=== PATIENT | female | born 1985 | race Caucasian/White ===

== ENCOUNTER → 2016-07-03 | Outpatient (CLI) | payer BC ==
--- NOTE | 2016-07-06 14:46 | US ---
EXAM DATE: 07/03/16 PATIENT'S AGE: 31 Patient: MOIZ GRAY Facility: [place], [place] Site . Site : 1985 Study: US OB Pelvis [id number]/10/2017 12:33:20 PM Ordering Physician: Sherry Bai Final Report: INDICATION: survey. TECHNIQUE: Conventional transabdominal two-dimensional grayscale ultrasound examination. COMPARISON: None. FINDINGS: There is a living fetus with gestational age of 19 weeks 1 day by LMP and 20 weeks by today`s measurements. EDC based on LMP is 11/26/2016. BPD: 4.8 cm, 20 weeks 3 days Head circumference: 17.0 cm, 19 weeks 4 days Abdominal circumference: 15.7 cm, 21 weeks Femur length: 3.0 cm, 19 weeks 2 days The weight is estimated at 331 grams, the 93rd percentile. The heart rate is measured at 148 beats per minute and the rhythm appears regular. The head is grossly intact. The spine is suboptimally visualized due to lie. No gross spinal abnormality is evident No gross facial abnormality is evident. The upper lip is intact. Four cardiac chambers are demonstrated. The heart and stomach appear to be on the same side. The diaphragm is intact. Two kidneys and a bladder are demonstrated. The cord insertion is normal and 3 cord vessels are noted. Four extremities are demonstrated. The amniotic fluid volume is within normal limits with PIERRE of 16 cm. The placenta is anterior with no evidence of previa. IMPRESSION: 1. Living fetus with gestational age of 19 weeks 1 day by LMP and 20 weeks by today`s measurements. EDC based on LMP is 11/26/2016. 2. No anomaly evident. spine less than optimally visualized but grossly intact. Dictated by Piyush Ayala MD @ Jul 06 2016 9:12AM (Electronic Signature) Report Signed by Proxy and Original Signed Document filed in the Medical Record. MTDD
== END ==
LOC: MW.US 10:52
PROVIDERS: ATTEND Obstetrics & Gynecology
DX: Z36 Encounter for antenatal screening of mother (principal); Z3A.19 19 weeks gestation of pregnancy
CPT/HCPCS: 76805; 76805-26

== ENCOUNTER → 2016-07-17 | Outpatient (CLI) | payer BC | LOC: MW.CHOBGYN 10:57 | PROVIDERS: ATTEND Obstetrics & Gynecology | DX: Z34.90 Encounter for supervision of normal pregnancy, unspecified, unspecified trimester (principal) | CPT/HCPCS: 81003 ==

== ENCOUNTER → 2016-08-14 | Outpatient (CLI) | payer BC | LOC: MW.CHOBGYN 10:54 | PROVIDERS: ATTEND Obstetrics & Gynecology | DX: Z34.90 Encounter for supervision of normal pregnancy, unspecified, unspecified trimester (principal) | CPT/HCPCS: 36415; 81003; 82950; 85027 ==

== ENCOUNTER → 2016-08-17 | Outpatient (CLI) | payer BC ==
--- NOTE | 2016-08-19 12:07 | US ---
EXAM DATE: 08/17/16 PATIENT'S AGE: 31 Patient: MOIZ GRAY Facility: [place], [place] Site . Site : 1985 Study: US OB Pelvis [id number]/[id number] 3:49:18 PM Ordering Physician: Sherry Bai Final Report: CLINICAL HISTORY: Third trimester scan, evaluate growth. TECHNIQUE: Real time awad scale imaging of the fetus was performed as well as color Doppler and spectral Doppler analysis of the umbilical artery. FINDINGS: Sonographic imaging demonstrates a single living intrauterine gestation. Fetus demonstrates a regular cardiac rate of 143 beats per minute. Fetus has a breech orientation . The placenta lies anterior without evidence of placenta previa. No hemorrhage is seen. Amniotic fluid volume appears normal and there is a four- quadrant fluid volume index measurement of 10.7. The composite ultrasound gestational age is calculated at 26 weeks 6 days. The estimated weight is 948 grams which lies at the 80th percentile. The biometric indices all lie within normal range. SHIVAM of 11/18/2015 Maternal kidneys that do not demonstrate hydronephrosis. biometry: BPD :6.8 cm/27 weeks 2 days HC :24.5 cm 26 weeks 5 days AC: 21.8 cm 26 weeks 2 day FL 5 cm 26 weeks 6 days IMPRESSION: 1. Single live intrauterine gestational composite gestational age by today`s ultrasound of 26 weeks 6 days with SHIVAM of 11/16/2016. 2. Maternal kidneys appear unremarkable. 3. Placenta appears within normal limits. No findings for hemorrhage. Dictated by Myriam Powell MD @ Aug 19 2016 9:08AM (Electronic Signature) Report Signed by Proxy and Original Signed Document filed in the Medical Record. MTDD
== END ==
LOC: MW.CHOBGYN 15:17
PROVIDERS: ATTEND Obstetrics & Gynecology
DX: O26.892 Other specified pregnancy related conditions, second trimester (principal); Z3A.26 26 weeks gestation of pregnancy
CPT/HCPCS: 76815; 76815-26

== ENCOUNTER → 2016-09-10 | Outpatient (CLI) | payer BC | LOC: MW.CHOBGYN 15:49 | PROVIDERS: ATTEND Advanced Practice Midwife | DX: Z34.90 Encounter for supervision of normal pregnancy, unspecified, unspecified trimester (principal) | CPT/HCPCS: 81003 ==

== ENCOUNTER 2016-11-20 17:25 | Inpatient (IN) | payer BC ==
--- NOTE | 2016-11-20 21:43 | PCM.LDHP ---
L&D History of Present Illness - General Date of Service: 11/20/16 Admit Problem/Dx: Admission Diagnosis/Problem Admission Diagnosis/Problem Source of Information: Patient History Limitations: Reports: No Limitations - History of Present Illness Improves with: Reports: None Worsens with: Reports: None Associated Symptoms: Reports: N - Related Data Allergies/Adverse Reactions: Allergies Allergy/AdvReac Type Severity Reaction Status Date / Time No Known Allergies Allergy Verified 05/04/14 18:40 Home Medications: Home Meds oxyCODONE 5 mg PO Q6H PRN #15 tablet 06/16/14 [Rx] Social & Family History - Tobacco Use Smoking Status *Q: Former Smoker Years of Tobacco use: 2 Used Tobacco, but Quit: Yes Month Tobacco Last Used: September, Second Hand Smoke Exposure: No - Alcohol Use Days Per Week of Alcohol Use: 0 - Recreational Drug Use Recreational Drug Use: No H&P Review of Systems - Review of Systems: Review Of Systems: See Below General: Reports: No Symptoms HEENT: Reports: No Symptoms Pulmonary: Reports: No Symptoms Cardiovascular: Reports: No Symptoms Gastrointestinal: Reports: No Symptoms Genitourinary: Reports: No Symptoms Musculoskeletal: Reports: No Symptoms Skin: Reports: No Symptoms Psychiatric: Reports: No Symptoms Neurological: Reports: No Symptoms Hematologic/Lymphatic: Reports: No Symptoms Immunologic: Reports: No Symptoms L&D Exam - Exam Exam: See Below - Vital Signs Weight: 122.47 kg - Bowens Score Bowens Score Cervix Position: Anterior Bowens Score Effacement: 51-70% Bowens Score Dilation: > 5 cm - Exam General: Alert, Oriented HEENT: PERRLA, Conjunctiva Clear, EACs Clear, EOMI, Hearing Intact, Mucosa Moist & [place], Nares Patent, Normal Nasal Septum, Posterior Pharynx Clear, TMs Clear Neck: Supple, Trachea Midline Lungs: Clear to Auscultation, Normal Respiratory Effort Cardiovascular: Regular Rate, Regular Rhythm GI/Abdominal Exam: Normal Bowel Sounds, Soft, Non-Tender, No Organomegaly, No Distention, No Abnormal Bruit, No Mass, Pelvis Stable Rectal Exam: Normal Exam, Normal Rectal Tone Genitourinary: Normal external exam, Normal bimanual exam, Normal speculum exam Back Exam: Normal Inspection, Full Range of Motion Extremities: Normal Inspection, Normal Range of Motion, Non-Tender, No Pedal Edema, Normal Capillary Refill Skin: Warm, Dry, Intact Neurological: Cranial Nerves Intact, Reflexes Equal Bilateral Psychiatric: Alert, Normal Affect, Normal Mood Problem List Initiated/Reviewed/Updated: Yes Orders Last 24hrs: Term in early active labor. Cx 4-5/80/v/-3. GBS postive. Plan to admit start on antibiotic as per protocol them she may need pitocine argumentation.
[2016-11-20] MEDS ORDERED: Misoprostol 200 MCG Tab PO PRN (22:21)
[2016-11-20] MEDS ORDERED: Lidocaine 1% 50 ML MDV INJECT PRN (22:21)
[2016-11-20] MEDS ORDERED: Water For Irrigation,Sterile 1,000 ML Container IRR PRN (22:21)
[2016-11-20] MEDS ORDERED: Carboprost Tromethamine 250 MCG/1 ML Amp IM PRN (22:21)
[2016-11-20] MEDS ORDERED: Methylergonovine 0.2 MG/1 ML Amp IM PRN (22:21)
[2016-11-20] MEDS ORDERED: Nalbuphine 10 MG/1 ML Vial IVPUSH PRN (22:21)
[2016-11-20] MEDS ORDERED: hydrOXYzine Pamoate 25 MG Cap PO ONE (22:35)
[2016-11-20] MEDS ORDERED: Ampicillin 2 GM in Sodium Chloride 0.9% 100 ML IV ONE (23:00)
[2016-11-20] MEDS: Lactated Ringers 1,000 ML IV SCH (23:30)
[2016-11-21] MEDS: Butorphanol 1 MG/ML SDV IVPUSH PRN ×2 (00:02→08:00)
[2016-11-21] MEDS: Ampicillin 1 GM in Sodium Chloride 0.9% 50 ML IV SCH ×5 (02:18→21:25)
[2016-11-21] MEDS ORDERED: Terbutaline 1 MG/ML SDV SUBCUT PRN (07:19)
[2016-11-21] MEDS ORDERED: Oxytocin/Lactated Ringers 30 UNIT/500 ML BAG IV SCH ×2 (07:30→08:00)
--- NOTE | 2016-11-21 08:12 | PCM.PREANE ---
[id number] Reaction - Review of Systems General: No Symptoms Pulmonary: No Symptoms Cardiovascular: No Symptoms Gastrointestinal: No Symptoms Neurological: No Symptoms Other: Reports: None - Physical Assessment Height: 5 ft 6 in Weight: 122.47 kg ASA Class: 2 Mental Status: Alert & Oriented x3 Airway Class: Mallampati = 2 Dentition: Reports: Normal Dentition Thyro-Mental Finger Breadths: 3 Mouth Opening Finger Breadths: 3 ROM/Head Extension: Full Lungs: Clear to Auscultation, Normal Respiratory Effort Cardiovascular: Regular Rate, Regular Rhythm - Lab Values: Laboratory Last Values WBC 12.25 K/uL (4.0-11.0) H 11/20/16 23:20 RBC 3.35 M/uL (4.30-5.90) L 11/20/16 23:20 Hgb 11.0 g/dL (12.0-16.0) L 11/20/16 23:20 Hct 32.7 % (36.0-46.0) L 11/20/16 23:20 MCV 97.6 fL (80.0-98.0) 11/20/16 23:20 MCH 32.8 pg (27.0-32.0) H 11/20/16 23:20 MCHC 33.6 g/dL (31.0-37.0) 11/20/16 23:20 RDW Std Deviation 49.8 fl (28.0-62.0) 11/20/16 23:20 RDW Coeff of Nasima 14 % (11.0-15.0) 11/20/16 23:20 Plt Count 192 K/uL (150-400) 11/20/16 23:20 MPV 12.60 fL (7.40-12.00) H 11/20/16 23:20 Nucleated RBC % 0.0 /100WBC 11/20/16 23:20 Nucleated RBCs # 0 K/uL 11/20/16 23:20 Blood Type A POSITIVE 11/20/16 23:20 Antibody Screen NEGATIVE 11/20/16 23:20 - Allergies Allergies/Adverse Reactions: Allergies Allergy/AdvReac Type Severity Reaction Status Date / Time No Known Allergies Allergy Verified 05/04/14 18:40 - Acknowledgements Anesthesia Type Planned: Epidural Pt an Appropriate Candidate for the Planned Anesthesia: Yes Alternatives and Risks of Anesthesia Discussed w Pt/Guardian: Yes Pt/Guardian Understands and Agrees with Anesthesia Plan: Yes PreAnesthesia Questionnaire HEENT History: Reports: None Cardiovascular History: Reports: None Respiratory History: Reports: None Gastrointestinal History: Reports: GERD, Other (See Below) (Hital Hernia) Genitourinary History: Reports: None CERTIFIED MEDICAL DOSIMETRIST History: Reports: : 4 Para: 2 LMP (Approximate): Musculoskeletal History: Reports: None Neurological History: Reports: None Psychiatric History: Reports: None Endocrine/Metabolic History: Reports: Obesity/BMI 30+ Hematologic History: Reports: None Immunologic History: Reports: None Oncologic (Cancer) History: Reports: None Dermatologic History: Reports: None - Infectious Disease History Infectious Disease History: Reports: None - SUBSTANCE USE Smoking Status *Q: Former Smoker Second Hand Smoke Exposure: No Days Per Week of Alcohol Use: 0 Recreational Drug Use History: No - HOME MEDS Home Medications: Home Meds oxyCODONE 5 mg PO Q6H PRN #15 tablet 06/16/14 [Rx] - CURRENT (IN HOUSE) MEDS Current Meds: Current Medications Butorphanol Tartrate (Stadol) 1 mg IVPUSH Q1H PRN PRN Reason: Pain Last Admin: 11/21/16 08:00 Dose: 1 mg Carboprost Tromethamine (Hemabate Ds) 250 mcg IM ASDIRECTED PRN PRN Reason: Post Hemorrhage Ampicillin Sodium 1 gm/ Sodium (Chloride) 50 mls @ 100 mls/hr IV Q4H TAYLOR Last Admin: 11/21/16 06:39 Dose: 100 mls/hr Lactated Ringer's (Ringers, Lactated) 1,000 mls @ 150 mls/hr IV ASDIRECTED TAYLOR Last Admin: 11/20/16 23:30 Dose: 150 mls/hr Oxytocin/Lactated Ringer's (Pitocin In Lr 30 Units/500 Ml) 30 unit in 500 mls @ 500 mls/hr IV TITRATE TAYLOR PRN Reason: 500 MUNITS/MIN Stop: 11/21/16 08:59 Oxytocin/Lactated Ringer's (Pitocin In Lr 30 Units/500 Ml) 30 unit in 500 mls @ 2 mls/hr IV TITRATE TAYLOR; 2 MUNITS/MIN PRN Reason: Protocol Lidocaine HCl (Xylocaine 1%) 50 ml INJECT .ONCE PRN PRN Reason: Laceration repair Methylergonovine Maleate (Methergine) 0.2 mg IM ASDIRECTED PRN PRN Reason: Post Hemorrhage Misoprostol (Cytotec) 200 mcg PO .ONCE PRN PRN Reason: Post Hemorrhage Sterile Water (Sterile Water For Irrigation) 1,000 ml IRR ASDIRECTED PRN PRN Reason: delivery Terbutaline Sulfate (Brethine) 0.25 mg SUBCUT ASDIRECTED PRN PRN Reason: Tacysystole Discontinued Medications Hydroxyzine Pamoate (Vistaril) 50 mg PO ONETIME ONE Stop: 11/20/16 22:36 Last Admin: 11/20/16 23:13 Dose: 50 mg Ampicillin Sodium 2 gm/ Sodium (Chloride) 100 mls @ 200 mls/hr IV ONETIME ONE Stop: 11/20/16 23:29 Last Admin: 11/20/16 23:35 Dose: 200 mls/hr Nalbuphine HCl (Nubain) 10 mg IVPUSH Q1H PRN PRN Reason: Pain (severe 7-10) Stop: 11/21/16 00:22
[2016-11-21] MEDS ORDERED: Ropivacaine HCl/PF 100 ML ONE (08:43)
[2016-11-21] MEDS ORDERED: fentaNYL 100 MCG/2 ML SDV ONE (08:43)
[2016-11-21] MEDS: Lactated Ringers 1,000 ML IV SCH (09:00)
[2016-11-21] MEDS ORDERED: Docusate Sodium 100 MG Cap PO PRN (11:49)
[2016-11-21] MEDS ORDERED: Benzocaine/Menthol 20%-0.5% Spray 78 GM Cannister TOP PRN (11:49)
[2016-11-21] MEDS ORDERED: Ibuprofen 400 MG Tab PO PRN (11:49)
[2016-11-21] MEDS ORDERED: Witch Hazel Medicated Pads 40/Jar TOP PRN (11:49)
[2016-11-21] MEDS ORDERED: Lanolin 100% Cream 7 GM Tube TOP PRN (11:49)
[2016-11-21] MEDS ORDERED: Bisacodyl 10 MG Supp RECTAL PRN (11:49)
[2016-11-21] MEDS ORDERED: Acetaminophen 500 MG Tab PO PRN (11:49)
[2016-11-21] MEDS: Ibuprofen 800 MG Tab PO PRN ×2 (14:59→20:30)
[2016-11-21] MEDS: Acetaminophen 500 MG Tab PO PRN (19:32)
[2016-11-21] MEDS: oxyCODONE 5 MG Tab PO PRN ×2 (21:25→23:57)
[2016-11-22] MEDS: Ibuprofen 800 MG Tab PO PRN (03:20)
[2016-11-22] MEDS: oxyCODONE 5 MG Tab PO PRN ×2 (04:30→08:42)
--- NOTE | 2016-11-22 07:27 | PCM48HPAN ---
Post Anesthesia Note - EVALUATION WITHIN 48HRS OF ANESTHETIC Vital Signs in Normal Range: Yes Patient Participated in Evaluation: Yes Respiratory Function Stable: Yes Airway Patent: Yes Cardiovascular Function Stable: Yes Hydration Status Stable: Yes Pain Control Satisfactory: Yes Nausea and Vomiting Control Satisfactory: Yes Mental Status Recovered: Yes
--- NOTE | 2016-11-22 09:38 | PCM.PNPP ---
- General Info Date of Service: 11/22/16 Functional Status: Reports: Pain Controlled - Review of Systems General: Reports: No Symptoms HEENT: Reports: No Symptoms Pulmonary: Reports: No Symptoms Cardiovascular: Reports: No Symptoms Gastrointestinal: Reports: No Symptoms Genitourinary: Reports: No Symptoms Musculoskeletal: Reports: No Symptoms Skin: Reports: No Symptoms Neurological: Reports: No Symptoms Psychiatric: Reports: No Symptoms - General Info Date of Service: 11/22/16 - Patient Data Vital Signs - Most Recent: Last Vital Signs Temp 36.3 C 11/22/16 07:39 Pulse 62 11/22/16 07:39 Resp 14 11/22/16 07:39 BP 122/78 11/22/16 07:39 Pulse Ox 98 11/22/16 07:39 Weight - Most Recent: 122.47 kg Lab Results - Last 24 Hours: Laboratory Results - last 24 hr 11/22/16 Range/Units 04:44 Hgb 9.9 L (12.0-16.0) g/dL Hct 30.4 L (36.0-46.0) % Med Orders - Current: Current Medications Acetaminophen (Tylenol Extra Strength) 500 mg PO Q4H PRN PRN Reason: Pain Acetaminophen (Tylenol Extra Strength) 1,000 mg PO Q4H PRN PRN Reason: Pain Last Admin: 11/21/16 19:32 Dose: 1,000 mg Benzocaine/Menthol (Dermoplast Pain Relief 20%-0.5% [place]) 78 gm TOP ASDIRECTED PRN PRN Reason: Perineal Comfort Measure Last Admin: 11/21/16 19:36 Dose: 1 canister Bisacodyl (Dulcolax) 10 mg RECTAL .ONCE PRN PRN Reason: Constipation Butorphanol Tartrate (Stadol) 1 mg IVPUSH Q1H PRN PRN Reason: Pain Last Admin: 11/21/16 08:00 Dose: 1 mg Carboprost Tromethamine (Hemabate Ds) 250 mcg IM ASDIRECTED PRN PRN Reason: Post Hemorrhage Docusate Sodium (Colace) 100 mg PO BID PRN PRN Reason: Constipation Emollient Ointment (Lansinoh Hpa) 0 gm TOP ASDIRECTED PRN PRN Reason: Sore Nipples Last Admin: 11/21/16 15:00 Dose: 2 tube Lactated Ringer's (Ringers, Lactated) 1,000 mls @ 150 mls/hr IV ASDIRECTED TAYLOR Last Admin: 11/21/16 09:00 Dose: 150 mls/hr Oxytocin/Lactated Ringer's (Pitocin In Lr 30 Units/500 Ml) 30 unit in 500 mls @ 2 mls/hr IV TITRATE TAYLOR; 2 MUNITS/MIN PRN Reason: Protocol Last Titration: 11/21/16 11:43 Dose: 999 munits/min, 999 mls/hr Ibuprofen (Motrin) 400 mg PO Q4H PRN PRN Reason: Pain Ibuprofen (Motrin) 800 mg PO Q6H PRN PRN Reason: Pain Last Admin: 11/22/16 03:20 Dose: 800 mg Lidocaine HCl (Xylocaine 1%) 50 ml INJECT .ONCE PRN PRN Reason: Laceration repair Methylergonovine Maleate (Methergine) 0.2 mg IM ASDIRECTED PRN PRN Reason: Post Hemorrhage Misoprostol (Cytotec) 200 mcg PO .ONCE PRN PRN Reason: Post Hemorrhage Oxycodone HCl (Oxycodone) 5 mg PO Q2H PRN PRN Reason: Pain Last Admin: 11/22/16 08:42 Dose: 5 mg Sterile Water (Sterile Water For Irrigation) 1,000 ml IRR ASDIRECTED PRN PRN Reason: delivery Terbutaline Sulfate (Brethine) 0.25 mg SUBCUT ASDIRECTED PRN PRN Reason: Tacysystole Witch Jasmin (Tucks) 1 pad TOP ASDIRECTED PRN PRN Reason: comfort care Discontinued Medications Fentanyl (Sublimaze) Confirm Administered Dose 100 mcg .ROUTE .STK-MED ONE Stop: 11/21/16 08:44 Last Admin: 11/21/16 21:24 Dose: Not Given Hydroxyzine Pamoate (Vistaril) 50 mg PO ONETIME ONE Stop: 11/20/16 22:36 Last Admin: 11/20/16 23:13 Dose: 50 mg Ampicillin Sodium 2 gm/ Sodium (Chloride) 100 mls @ 200 mls/hr IV ONETIME ONE Stop: 11/20/16 23:29 Last Admin: 11/20/16 23:35 Dose: 200 mls/hr Ampicillin Sodium 1 gm/ Sodium (Chloride) 50 mls @ 100 mls/hr IV Q4H TAYLOR Last Admin: 11/21/16 21:25 Dose: Not Given Oxytocin/Lactated Ringer's (Pitocin In Lr 30 Units/500 Ml) 30 unit in 500 mls @ 500 mls/hr IV TITRATE TAYLOR PRN Reason: 500 MUNITS/MIN Stop: 11/21/16 08:59 Last Admin: 11/21/16 21:24 Dose: Not Given Ropivacaine (Naropin 0.2%) Confirm Administered Dose 100 mls @ as directed .ROUTE .STK-MED ONE Stop: 11/21/16 08:44 Last Admin: 11/21/16 21:24 Dose: Not Given Nalbuphine HCl (Nubain) 10 mg IVPUSH Q1H PRN PRN Reason: Pain (severe 7-10) Stop: 11/21/16 00:22 - Interaction Support Person: - Recovery Exam Fundal Tone: Firm Fundal Level: 2 Fingerbreadths Below Umbilicus Fundal Placement: Midline Lochia Amount: Scant Lochia Color: Rubra/Red Perineum Description: Intact, Minimal Bruising/Swelling Bladder Status: Voiding Urinary Elimination: Voided - Exam General: Alert, Oriented HEENT: Pupils Equal Neck: Supple Lungs: Clear to Auscultation, Normal Respiratory Effort Cardiovascular: Regular Rate, Regular Rhythm GI/Abdominal Exam: Normal Bowel Sounds, Soft, Non-Tender, No Organomegaly, No Distention, No Abnormal Bruit, No Mass, Pelvis Stable Extremities: Normal Inspection, Normal Range of Motion, Non-Tender, No Pedal Edema, Normal Capillary Refill Skin: Warm, Dry, Intact Wound/Incisions: Healing Well Neurological: No New Focal Deficit Psy/Mental Status: Alert, Normal Affect, Normal Mood - Problem List Review Problem List Initiated/Reviewed/Updated: Yes - My Orders Last 24 Hours: My Active Orders 11/21/16 11:49 Patient Status [ADT] Routine May Shower [RC] ASDIRECTED Up ad May [RC] ASDIRECTED Acetaminophen [Tylenol Extra Strength] 1,000 mg PO Q4H PRN Acetaminophen [Tylenol Extra Strength] 500 mg PO Q4H PRN Benzocaine/Menthol [Dermoplast Pain Relief 20%-0.5% [place]] 78 gm TOP ASDIRECTED PRN Bisacodyl [Dulcolax] 10 mg RECTAL .ONCE PRN Docusate Sodium [Colace] 100 mg PO BID PRN Ibuprofen [Motrin] 400 mg PO Q4H PRN Ibuprofen [Motrin] 800 mg PO Q6H PRN Lanolin [Lansinoh HPA] See Dose Instructions TOP ASDIRECTED PRN Witch Jasmin [Tucks] 1 pad TOP ASDIRECTED PRN oxyCODONE 5 mg PO Q2H PRN Assess Lochia [WOMSER] Per Unit Routine Assess Uterine Involution [WOMSER] Per Unit Routine Peripheral IV Discontinue [OM.PC] Routine 11/21/16 Dinner Regular Diet [DIET] - Assessment Assessment:: doing well - Plan Plan:: Send home today.
[2016-11-22] MEDS: Acetaminophen 500 MG Tab PO PRN (12:07)
[2016-11-22 12:41] VITALS: BP 127/72
--- NOTE | 2016-11-23 06:17 | OR ---
SURGEON: Richardson Powell MD DATE OF PROCEDURE: 11/21/16 DELIVERY NOTE: Ms. Matos is 31 years old patient. She is para 1-0-0-1. She is followed in our clinic without problem or complication. Her diabetes screen was negative. Her GBS status was positive. The patient was admitted to Labor and Delivery in early active labor. She was 4 to 5 cm with bulging bag of water and a [id number] contraction. The patient was started on antibiotic as per protocol for her GBS status, and then after two doses, she had an artificial rupture of the membrane with clear fluid. She required low dose Pitocin augmentation, she proceeded to be complete, and after that, she was able to accomplish normal spontaneous vaginal delivery of a male fetus. score reported to be 8 and 9 and the weight is 813. The placenta delivered spontaneous, complete, and intact without any problem. There was no need of episiotomy and there was no laceration. heart rate was category 1 through the entire process of labor. Estimated blood loss was 250 mL in this delivery. There were no complications. . CASSIDY / ALBINA /[id number]
== END 2016-11-22 14:45 | disposition home or self-care (01) | DRG 560 ==
LOC: MW.OBCHECK 17:25 → MW.OB 17:56 → MW.OBCHECK 22:22 → OBSVTOIN 11-21 11:43 → MW.OB 11-21 22:01
PROVIDERS: ADMIT Obstetrics & Gynecology; ATTEND Obstetrics & Gynecology
PROC: 10E0XZZ Delivery of Products of Conception, External Approach (ICD-10-PCS; principal; 2016-11-21)
PROC: 10907ZC Drainage of Amniotic Fluid, Therapeutic from Products of Conception, Via Natural or Artificial Opening (ICD-10-PCS; 2016-11-21)
DX: O99.824 Streptococcus B carrier state complicating childbirth (principal); Z3A.40 40 weeks gestation of pregnancy; Z37.0 Single live birth
CPT/HCPCS: 01967; 36415; 59025; 85014; 85018; 85027; 86850; 86900; 86901; A9270-GY; J0290; J0595; J2795; J3010; J7030; J7050; J7120

== ENCOUNTER 2019-01-27 11:32 | Inpatient (IN) | payer OTHER ==
[2019-01-27] MEDS ORDERED: Butorphanol 1 MG/ML SDV IVPUSH PRN (12:05)
[2019-01-27] MEDS ORDERED: Sodium Chloride 0.9% 10 ML SDV IV PRN (12:05)
[2019-01-27] MEDS ORDERED: Nalbuphine 10 MG/1 ML Vial IVPUSH PRN (12:05)
[2019-01-27] MEDS ORDERED: Methylergonovine 0.2 MG/1 ML Amp IM PRN (12:05)
[2019-01-27] MEDS ORDERED: Sodium Chloride 0.9% 2.5 ML Syringe FLUSH PRN (12:05)
[2019-01-27] MEDS ORDERED: Misoprostol 200 MCG Tab PO PRN (12:05)
[2019-01-27] MEDS ORDERED: Lidocaine 1% 50 ML MDV INJECT PRN (12:05)
[2019-01-27] MEDS ORDERED: Sodium Chloride 0.9% 10 ML Syringe FLUSH PRN (12:05)
[2019-01-27] MEDS ORDERED: Carboprost Tromethamine 250 MCG/1 ML Amp IM PRN (12:05)
[2019-01-27] MEDS ORDERED: Water For Irrigation,Sterile 1,000 ML Container IRR PRN (12:05)
[2019-01-27] MEDS ORDERED: Ondansetron 4 MG/2 ML SDV IVPUSH PRN (12:05)
[2019-01-27] MEDS ORDERED: Tranexamic Acid 1,000 MG in Sodium Chloride 0.9% 100 ML IV PRN (12:05)
[2019-01-27] MEDS ORDERED: Terbutaline 1 MG/ML SDV SUBCUT PRN (12:12)
[2019-01-27] MEDS ORDERED: Misoprostol 25 MCG (1/4 of 100 MCG) Tab VAG PRN ×2 (12:12)
[2019-01-27] MEDS ORDERED: Magnesium Sulfate/Water 4 GM in Premix Bag 1 BAG IV ONE (12:15)
[2019-01-27] MEDS ORDERED: Calcium Gluconate 10% 1 GM/10 ML SDV IV PRN (12:15)
[2019-01-27] MEDS ORDERED: Magnesium Sulfate/Water 20 GM/500 ML BAG IV SCH (12:15)
[2019-01-27] MEDS ORDERED: Oxytocin/0.9 % Sodium Chloride 30 UNIT/500 ML BAG IV SCH (12:15)
[2019-01-27] MEDS ORDERED: Sodium Chloride 0.9% 1,000 ML IV SCH (12:45)
[2019-01-27 13:25] LABS: BLOOD UREA NITROGEN,BUN 7 mg/dL (7.0-18.0); CARBON DIOXIDE,CO2 19.6 mmol/L (21.0-32.0); CHLORIDE,CL 106 mmol/L (98-107); GLUCOSE RANDOM 75 mg/dL (74-106); POTASSIUM,K 3.9 mmol/L (3.5-5.1); SODIUM,NA 138 mmol/L (136-145)
[2019-01-27] MEDS ORDERED: Oxytocin/0.9 % Sodium Chloride 30 UNIT/500 ML BAG ONE (14:48)
[2019-01-27] MEDS: Oxytocin/0.9 % Sodium Chloride 30 UNIT/500 ML BAG IV SCH (15:03)
[2019-01-27] MEDS: Lactated Ringers 1,000 ML IV SCH ×3 (15:03→22:10)
[2019-01-27] MEDS: Acetaminophen 500 MG Tab PO PRN (19:59)
--- NOTE | 2019-01-27 21:24 | PCM.PREANE ---
Preanesthetic Assessment - Anesthesia/Transfusion/Family Hx Anesthesia History: Prior Anesthesia Without Reaction Family History of Anesthesia Reaction: No Transfusion History: No Prior Transfusion(s) - Review of Systems General: No Symptoms Pulmonary: No Symptoms Cardiovascular: No Symptoms Gastrointestinal: No Symptoms Neurological: No Symptoms Other: Reports: None - Physical Assessment Height: 5 ft 6 in Weight: 119.295 kg ASA Class: 2 Mental Status: Alert & Oriented x3 Airway Class: Mallampati = 2 Dentition: Reports: Normal Dentition Thyro-Mental Finger Breadths: 3 Mouth Opening Finger Breadths: 3 ROM/Head Extension: Full Lungs: Clear to Auscultation, Normal Respiratory Effort Cardiovascular: Regular Rate, Regular Rhythm - Lab Values: Laboratory Last Values WBC 8.71 K/uL (4.0-11.0) 01/27/19 12:41 RBC 3.41 M/uL (4.30-5.90) L 01/27/19 12:41 Hgb 10.8 g/dL (12.0-16.0) L 01/27/19 12:41 Hct 33.1 % (36.0-46.0) L 01/27/19 12:41 MCV 97.1 fL (80.0-98.0) 01/27/19 12:41 MCH 31.7 pg (27.0-32.0) 01/27/19 12:41 MCHC 32.6 g/dL (31.0-37.0) 01/27/19 12:41 RDW Std Deviation 47.5 fl (28.0-62.0) 01/27/19 12:41 RDW Coeff of Nasima 14 % (11.0-15.0) 01/27/19 12:41 Plt Count 200 K/uL (150-400) 01/27/19 12:41 MPV 12.40 fL (7.40-12.00) H 01/27/19 12:41 Nucleated RBC % 0.0 /100WBC 01/27/19 12:41 Nucleated RBCs # 0 K/uL 01/27/19 12:41 Sodium 138 mmol/L (136-145) 01/27/19 12:41 Potassium 3.9 mmol/L (3.5-5.1) 01/27/19 12:41 Chloride 106 mmol/L (98-107) 01/27/19 12:41 Carbon Dioxide 19.6 mmol/L (21.0-32.0) L 01/27/19 12:41 BUN 7 mg/dL (7.0-18.0) 01/27/19 12:41 Creatinine 0.6 mg/dL (0.6-1.0) 01/27/19 12:41 Est Cr Clr Drug Dosing 127.18 mL/min 01/27/19 12:41 Estimated GFR (MDRD) > 60.0 ml/min 01/27/19 12:41 Glucose 75 mg/dL (74-106) 01/27/19 12:41 Uric Acid 4.2 mg/dL (2.6-7.2) 01/27/19 12:41 Calcium 8.5 mg/dL (8.5-10.1) 01/27/19 12:41 Magnesium 4.7 mg/dL (1.8-2.4) H 01/27/19 17:27 Total Bilirubin 0.3 mg/dL (0.2-1.0) 01/27/19 12:41 AST 24 IU/L (15-37) 01/27/19 12:41 ALT 41 IU/L (14-63) 01/27/19 12:41 Alkaline Phosphatase 135 U/L (46-116) H 01/27/19 12:41 Lactate Dehydrogenase 146 U/L (81-234) 01/27/19 12:41 Total Protein 6.3 g/dL (6.4-8.2) L 01/27/19 12:41 Albumin 1.9 g/dL (3.4-5.0) L 01/27/19 12:41 Globulin 4.4 g/dL (2.6-4.0) H 01/27/19 12:41 Albumin/Globulin Ratio 0.4 (0.9-1.6) L 01/27/19 12:41 Ur Random Creatinine 100.1 mg/dL 01/27/19 13:40 U Random Total Protein 28.6 mg/dL (<11.9) H 01/27/19 13:40 Protein/Creatinin Ratio 0.3 01/27/19 13:40 Blood Type A POSITIVE 01/27/19 12:41 Antibody Screen NEGATIVE 01/27/19 12:41 - Allergies Allergies/Adverse Reactions: Allergies Allergy/AdvReac Type Severity Reaction Status Date / Time No Known Allergies Allergy Verified 01/27/19 12:01 - Anesthesia Plan Free Text/Narrative:: Plan Continuous Labor Epidural - Acknowledgements Anesthesia Type Planned: Epidural Pt an Appropriate Candidate for the Planned Anesthesia: Yes Alternatives and Risks of Anesthesia Discussed w Pt/Guardian: Yes Pt/Guardian Understands and Agrees with Anesthesia Plan: Yes PreAnesthesia Questionnaire HEENT History: Reports: None Cardiovascular History: Reports: Hypertension Other Cardiovascular History: Hypertension with -preeclampsia Respiratory History: Reports: None Gastrointestinal History: Reports: GERD, Hiatal Hernia, Other (See Below) Genitourinary History: Reports: None TRUMPET PLAYER History: Reports: , Other (See Below) (Preeclampsia) : 4 Para: 2 LMP (Approximate): Musculoskeletal History: Reports: None Neurological History: Reports: Other (See Below) (Headaches) Psychiatric History: Reports: None Endocrine/Metabolic History: Reports: Obesity/BMI 30+ Hematologic History: Reports: None Immunologic History: Reports: None Oncologic (Cancer) History: Reports: None Dermatologic History: Reports: None - Infectious Disease History Infectious Disease History: Reports: None - Past Surgical History HEENT Surgical History: Reports: Adenoidectomy, Naso-Sinus Surgery, Tonsillectomy Musculoskeletal Surgical History: Reports: Shoulder Surgery (Right Shoulder) - SUBSTANCE USE Smoking Status *Q: Never Smoker Recreational Drug Use History: No - HOME MEDS Home Medications: Home Meds Acetaminophen [Tylenol Extra Strength] 1,000 mg PO DAILY PRN 12/08/18 [History] [id number]/FA/Omega3/Dha/Fish Oil [ Gummies] 1 tab PO DAILY 12/08/18 [ History] Acetaminophen/Butalbital/Caff [Fioricet 325-50-40 MG] 1 each PO 01/27/19 [ History] Sertraline [Zoloft] 50 mg PO DAILY 01/27/19 [History] - CURRENT (IN HOUSE) MEDS Current Meds: Current Medications Acetaminophen (Tylenol Extra Strength) 1,000 mg PO Q6H PRN PRN Reason: Headache Last Admin: 01/27/19 19:59 Dose: 1,000 mg Butorphanol Tartrate (Stadol) 1 mg IVPUSH Q1H PRN PRN Reason: Pain Calcium Gluconate (Calcium Gluconate) 1 gm IV ASDIRECTED PRN PRN Reason: respiratory distress Carboprost Tromethamine (Hemabate Ds) 250 mcg IM ASDIRECTED PRN PRN Reason: Post Hemorrhage Lactated Ringer's (Ringers, Lactated) 1,000 mls @ 150 mls/hr IV ASDIRECTED [facility] Last Admin: 01/27/19 15:03 Dose: 10 mls/hr Oxytocin/Sodium Chloride (Oxytocin 30 Unit/500 Ml-Ns) 30 unit in 500 mls @ 500 mls/hr IV TITRATE [facility] Tranexamic Acid 1,000 mg/ (Sodium Chloride) 110 mls @ 660 mls/hr IV ONETIME PRN PRN Reason: Bleeding Oxytocin/Sodium Chloride (Oxytocin 30 Unit/500 Ml-Ns) 30 unit in 500 mls @ 2 mls/hr IV TITRATE [facility]; Protocol Last Titration: 01/27/19 19:19 Dose: 12 munits/min, 12 mls/hr Magnesium Sulfate (Magnesium Sulfate In Water Premix) 20 gm in 500 mls @ 50 mls /hr IV ASDIRECTED [facility] Last Admin: 01/27/19 13:17 Dose: 2 gm/hr, 50 mls/hr Sodium Chloride (Normal Saline) 1,000 mls @ 60 mls/hr IV ASDIRECTED [facility] Last Infusion: 01/27/19 13:15 Dose: 10 mls/hr Lidocaine HCl (Xylocaine 1%) 50 ml INJECT ONETIME PRN PRN Reason: Laceration repair Methylergonovine Maleate (Methergine) 0.2 mg IM ASDIRECTED PRN PRN Reason: Post Hemorrhage Misoprostol (Cytotec) 200 mcg PO ONETIME PRN PRN Reason: Post Hemorrhage Misoprostol (Cytotec) 25 mcg VAG ONETIME PRN PRN Reason: Cervical Ripening Misoprostol (Cytotec) 25 mcg VAG Q4H PRN PRN Reason: Cervical Ripening Nalbuphine HCl (Nubain) 10 mg IVPUSH Q1H PRN PRN Reason: Pain (severe 7-10) Ondansetron HCl (Zofran) 4 mg IVPUSH Q6H PRN PRN Reason: Nausea/Vomiting Sodium Chloride (Saline Flush) 10 ml FLUSH ASDIRECTED PRN PRN Reason: Keep Vein Open Sodium Chloride (Saline Flush) 2.5 ml FLUSH ASDIRECTED PRN PRN Reason: Keep Vein Open Sodium Chloride (Normal Saline) 10 ml IV ASDIRECTED PRN PRN Reason: IV Use Sterile Water (Sterile Water For Irrigation) 1,000 ml IRR ASDIRECTED PRN PRN Reason: delivery Terbutaline Sulfate (Brethine) 0.25 mg SUBCUT ASDIRECTED PRN PRN Reason: Tacysystole Discontinued Medications Magnesium Sulfate 4 gm/ Premix 100 mls @ 300 mls/hr IV BOLUS ONE Stop: 01/27/19 12:34 Last Admin: 01/27/19 12:58 Dose: 300 mls/hr Oxytocin/Sodium Chloride (Oxytocin 30 Unit/500 Ml-Ns) Confirm Administered Dose 30 unit in 500 mls @ as directed .ROUTE .STK-MED ONE Stop: 01/27/19 14:49 Fentanyl/Bupivacaine HCl (Xrrhdnku-Gfgup-Ah 2 Mcg/Ml-0.125%) Confirm Administered Dose 100 mls @ as directed .ROUTE .STK-MED ONE Stop: 01/27/19 20:36
[2019-01-27] MEDS ORDERED: ePHEDrine 50 MG/ML SDV ONE (21:32)
[2019-01-27] MEDS: ePHEDrine 50 MG/ML SDV IVPUSH PRN ×4 (21:36→22:51)
[2019-01-27] MEDS ORDERED: Phenylephrine 1% 10 MG/ML SDV ONE (22:28)
[2019-01-28] MEDS: Lactated Ringers 1,000 ML IV SCH (02:10)
[2019-01-28] MEDS: Acetaminophen 500 MG Tab PO PRN (02:28)
--- NOTE | 2019-01-28 02:29 | PCM.SN ---
- Free Text/Narrative Note: Patient has a history of preeclampsia and arrived for induction 01/27/19. Epidural was requested at approximately 2009 on 01/27/19. Vital signs were stable at the time with patient on pitocin and magnesium infusions. Epidural placed after two attempts. During the latter part of the epidural placement, patient became nauseated and BP dropped in the 90's/60's. Upon completion of epidural placement, test dose was given when BP returned to 110's systolically without any changes in vital signs. Patient was positioned semi-fowlers and bolus dose of 8 ml was initiated via epidural pump. Monitored patient closely for the next several hours some as patient started to have more complaints of feeling tinglingly all over and nausea continued. RN had contacted MD and magnesium infusion was stopped. Assisted RN with treatment of BP using ephedrine and phenylephrine, as well as turned the epidural infusion essentially off at 1 ml/hr. During the entire time, heart tones remained stable and without concerns. See anesthesia records and PIP for further details on medications and further interventions by the nurse & [employer]. At approximately 0200 on 01/28/19, nurse requests to have epidural epidural infusion turned back up to 8 ml/hr when vital signs remained stable and patient was starting to become more uncomfortable during contractions.
--- NOTE | 2019-01-28 04:50 | PCM.DEL ---
L & D Note - General Info Date of Service: 01/28/19 Mother's Due Date: 02/19/19 - Delivery Note Labor: Augmented by ARM, Induced by Oxytocin Delivery Outcome: Livebirth Delivery Method: Spontaneous Vaginal Delivery-Single Presentation: precipitous (5 cm at 4:12, delivered at 4:20) Nuchal Cord: Reduced Prep: Other Anesthesia Type: Epidural Amniotic Fluid Description: Clear Episiotomy Type: None Laceration: None Placenta: Intact, Spontaneous Cord: 3 Vessels Resuscitation Needed: No [facility]: Suctioned Score 1 min: 5 Score 5 min: 8 - General Info Date of Service: 01/28/19 - Patient Data Weight - Most Recent: 119.295 kg Lab Results Last 24 Hours: Laboratory Results - last 24 hr 01/27/19 01/27/19 01/27/19 Range/Units 12:41 12:41 12:41 WBC 8.71 (4.0-11.0) K/uL RBC 3.41 L (4.30-5.90) M/uL Hgb 10.8 L (12.0-16.0) g/dL Hct 33.1 L (36.0-46.0) % MCV 97.1 (80.0-98.0) fL MCH 31.7 (27.0-32.0) pg MCHC 32.6 (31.0-37.0) g/dL RDW Std Deviation 47.5 (28.0-62.0) fl RDW Coeff of Nasima 14 (11.0-15.0) % Plt Count 200 (150-400) K/uL MPV 12.40 H (7.40-12.00) fL Nucleated RBC % 0.0 /100WBC Nucleated RBCs # 0 K/uL Sodium 138 (136-145) mmol/L Potassium 3.9 (3.5-5.1) mmol/L Chloride 106 (98-107) mmol/L Carbon Dioxide 19.6 L (21.0-32.0) mmol/L BUN 7 (7.0-18.0) mg/dL Creatinine 0.6 (0.6-1.0) mg/dL Est Cr Clr Drug Dosing 127.18 mL/min Estimated GFR (MDRD) > 60.0 ml/min Glucose 75 (74-106) mg/dL Uric Acid 4.2 (2.6-7.2) mg/dL Calcium 8.5 (8.5-10.1) mg/dL Magnesium (1.8-2.4) mg/dL Total Bilirubin 0.3 (0.2-1.0) mg/dL AST 24 (15-37) IU/L ALT 41 (14-63) IU/L Alkaline Phosphatase 135 H (46-116) U/L Lactate Dehydrogenase 146 (81-234) U/L Total Protein 6.3 L (6.4-8.2) g/dL Albumin 1.9 L (3.4-5.0) g/dL Globulin 4.4 H (2.6-4.0) g/dL Albumin/Globulin Ratio 0.4 L (0.9-1.6) Ur Random Creatinine mg/dL U Random Total Protein (<11.9) mg/dL Protein/Creatinin Ratio Blood Type A POSITIVE Antibody Screen NEGATIVE 01/27/19 01/27/19 01/27/19 Range/Units 13:40 17:27 23:28 WBC (4.0-11.0) K/uL RBC (4.30-5.90) M/uL Hgb (12.0-16.0) g/dL Hct (36.0-46.0) % MCV (80.0-98.0) fL MCH (27.0-32.0) pg MCHC (31.0-37.0) g/dL RDW Std Deviation (28.0-62.0) fl RDW Coeff of Nasima (11.0-15.0) % Plt Count (150-400) K/uL MPV (7.40-12.00) fL Nucleated RBC % /100WBC Nucleated RBCs # K/uL Sodium (136-145) mmol/L Potassium (3.5-5.1) mmol/L Chloride (98-107) mmol/L Carbon Dioxide (21.0-32.0) mmol/L BUN (7.0-18.0) mg/dL Creatinine (0.6-1.0) mg/dL Est Cr Clr Drug Dosing mL/min Estimated GFR (MDRD) ml/min Glucose (74-106) mg/dL Uric Acid (2.6-7.2) mg/dL Calcium (8.5-10.1) mg/dL Magnesium 4.7 H 4.1 H (1.8-2.4) mg/dL Total Bilirubin (0.2-1.0) mg/dL AST (15-37) IU/L ALT (14-63) IU/L Alkaline Phosphatase (46-116) U/L Lactate Dehydrogenase (81-234) U/L Total Protein (6.4-8.2) g/dL Albumin (3.4-5.0) g/dL Globulin (2.6-4.0) g/dL Albumin/Globulin Ratio (0.9-1.6) Ur Random Creatinine 100.1 mg/dL U Random Total Protein 28.6 H (<11.9) mg/dL Protein/Creatinin Ratio 0.3 Blood Type Antibody Screen Med Orders - Current: Current Medications Acetaminophen (Tylenol Extra Strength) 1,000 mg PO Q6H PRN PRN Reason: Headache Last Admin: 01/28/19 02:28 Dose: 1,000 mg Butorphanol Tartrate (Stadol) 1 mg IVPUSH Q1H PRN PRN Reason: Pain Calcium Gluconate (Calcium Gluconate) 1 gm IV ASDIRECTED PRN PRN Reason: respiratory distress Carboprost Tromethamine (Hemabate Ds) 250 mcg IM ASDIRECTED PRN PRN Reason: Post Hemorrhage Ephedrine Sulfate (Ephedrine Sulfate) 5 mg IVPUSH ONETIME PRN PRN Reason: Symptomatic Hypotension Stop: 01/28/19 22:16 Last Admin: 01/27/19 22:51 Dose: 5 mg Lactated Ringer's (Ringers, Lactated) 1,000 mls @ 150 mls/hr IV ASDIRECTED [facility] Last Admin: 01/28/19 02:10 Dose: 125 mls/hr Oxytocin/Sodium Chloride (Oxytocin 30 Unit/500 Ml-Ns) 30 unit in 500 mls @ 500 mls/hr IV TITRATE [facility] Tranexamic Acid 1,000 mg/ (Sodium Chloride) 110 mls @ 660 mls/hr IV ONETIME PRN PRN Reason: Bleeding Oxytocin/Sodium Chloride (Oxytocin 30 Unit/500 Ml-Ns) 30 unit in 500 mls @ 2 mls/hr IV TITRATE TAYLOR; Protocol Last Titration: 01/28/19 03:40 Dose: 34 munits/min, 34 mls/hr Magnesium Sulfate (Magnesium Sulfate In Water Premix) 20 gm in 500 mls @ 50 mls /hr IV ASDIRECTED [facility] Last Infusion: 01/27/19 22:14 Dose: 0 gm/hr, 0 mls/hr Sodium Chloride (Normal Saline) 1,000 mls @ 60 mls/hr IV ASDIRECTED [facility] Last Infusion: 01/27/19 13:15 Dose: 10 mls/hr Lidocaine HCl (Xylocaine 1%) 50 ml INJECT ONETIME PRN PRN Reason: Laceration repair Methylergonovine Maleate (Methergine) 0.2 mg IM ASDIRECTED PRN PRN Reason: Post Hemorrhage Misoprostol (Cytotec) 200 mcg PO ONETIME PRN PRN Reason: Post Hemorrhage Misoprostol (Cytotec) 25 mcg VAG ONETIME PRN PRN Reason: Cervical Ripening Misoprostol (Cytotec) 25 mcg VAG Q4H PRN PRN Reason: Cervical Ripening Nalbuphine HCl (Nubain) 10 mg IVPUSH Q1H PRN PRN Reason: Pain (severe 7-10) Ondansetron HCl (Zofran) 4 mg IVPUSH Q6H PRN PRN Reason: Nausea/Vomiting Last Admin: 01/27/19 21:49 Dose: 4 mg Sodium Chloride (Saline Flush) 10 ml FLUSH ASDIRECTED PRN PRN Reason: Keep Vein Open Sodium Chloride (Saline Flush) 2.5 ml FLUSH ASDIRECTED PRN PRN Reason: Keep Vein Open Sodium Chloride (Normal Saline) 10 ml IV ASDIRECTED PRN PRN Reason: IV Use Sterile Water (Sterile Water For Irrigation) 1,000 ml IRR ASDIRECTED PRN PRN Reason: delivery Terbutaline Sulfate (Brethine) 0.25 mg SUBCUT ASDIRECTED PRN PRN Reason: Tacysystole Discontinued Medications Ephedrine Sulfate (Ephedrine Sulfate) Confirm Administered Dose 50 mg .ROUTE .STK-MED ONE Stop: 01/27/19 21:33 Magnesium Sulfate 4 gm/ Premix 100 mls @ 300 mls/hr IV BOLUS ONE Stop: 01/27/19 12:34 Last Admin: 01/27/19 12:58 Dose: 300 mls/hr Oxytocin/Sodium Chloride (Oxytocin 30 Unit/500 Ml-Ns) Confirm Administered Dose 30 unit in 500 mls @ as directed .ROUTE .STK-MED ONE Stop: 01/27/19 14:49 Fentanyl/Bupivacaine HCl (Uvkeqjoo-Wswiq-Si 2 Mcg/Ml-0.125%) Confirm Administered Dose 100 mls @ as directed .ROUTE .STK-MED ONE Stop: 01/27/19 20:36 Phenylephrine HCl (Loyd-Synephrine) Confirm Administered Dose 10 mg .ROUTE .STK- MED ONE Stop: 01/27/19 22:29 - Problem List & Annotations (1) Mild pre-eclampsia SNOMED Code(s): 06672981 Code(s): O14.00 - MILD TO MODERATE PRE-ECLAMPSIA, UNSPECIFIED TRIMESTER Status: Acute Current Visit: Yes - Problem List Review Problem List Initiated/Reviewed/Updated: Yes - My Orders Last 24 Hours: My Active Orders 01/27/19 19:43 Acetaminophen [Tylenol Extra Strength] 1,000 mg PO Q6H PRN
[2019-01-28] MEDS ORDERED: Witch Hazel Medicated Pads 40/Jar TOP PRN (04:56)
[2019-01-28] MEDS ORDERED: Benzocaine/Menthol 20%-0.5% Spray 78 GM Cannister TOP PRN (04:56)
[2019-01-28] MEDS ORDERED: Acetaminophen 500 MG Tab PO PRN ×3 (04:56→04:58)
[2019-01-28] MEDS ORDERED: Methylergonovine 0.2 MG/1 ML Amp IM PRN (04:56)
[2019-01-28] MEDS ORDERED: Lanolin 100% Cream 7 GM Tube TOP PRN (04:56)
[2019-01-28] MEDS ORDERED: oxyCODONE 5 MG Tab PO PRN (04:56)
[2019-01-28] MEDS ORDERED: Docusate Sodium 100 MG Cap PO PRN (04:56)
[2019-01-28] MEDS ORDERED: Ibuprofen 800 MG Tab PO PRN (04:56)
[2019-01-28] MEDS ORDERED: Ibuprofen 400 MG Tab PO PRN (04:56)
[2019-01-28] MEDS ORDERED: Bisacodyl 10 MG Supp RECTAL PRN (04:56)
[2019-01-28] MEDS: Oxytocin/0.9 % Sodium Chloride 30 UNIT/500 ML BAG IV SCH (05:55)
--- NOTE | 2019-01-28 05:59 | OR ---
SURGEON: Elizabeth Sosa M.D. DATE OF PROCEDURE: 01/28/2019 PREOPERATIVE DIAGNOSES: Thirty seven-week intrauterine , preeclampsia. POSTOPERATIVE DIAGNOSES: Thirty seven-week intrauterine , preeclampsia, and precipitous delivery. PROCEDURE: Magnesium seizure prophylaxis, Pitocin induction of labor, term spontaneous vaginal delivery. ANESTHESIA: Epidural. ESTIMATED BLOOD LOSS: Less than 200 mL. FINDINGS: Live born male. scores 5 and 8. Weight is pending at the time of dictation. Placenta spontaneous. Schultze intact with 3 vessels. Perineum intact. BRIEF HISTORY: This is a 33-year-old female. She is G4, P2-0-1-2. She presented for clinic visit at 36-6/7 weeks' gestation with elevated blood pressure, severe headache, and proteinuria. She was sent to Labor and Delivery for induction of labor at approximately noon. Pitocin was initiated and advanced up to 24 milliunits per minute. However, an artificial rupture of membranes was performed at approximately 5 p.m. She was 2 cm, 40%, -3 station. Clear fluid was noted. She had rare contractions. At approximately 7 p.m., it was discovered that the IV for the Pitocin was not hooked up and the Pitocin was leaking on to the floor, and therefore the Pitocin was restarted at half the dose and then she began to have some irregular contractions. She did receive an epidural for pain control. By 2:30 a.m., she was 3 cm dilated. Pitocin was continued. She had category 1 heart tones. At 4:12, she was checked and was 5 cm. Immediately thereafter, she began to feel pressure and urge to push. I was notified at 4:17 to come for delivery and arrived within 6 minutes. However, the delivery occurred at 4:20. The nurse reported there was a triple nuchal cord that was reduced. DESCRIPTION OF PROCEDURE: After the infant was passed to the warmer, cord blood was collected for cord ABGs as well as routine cord blood sampling. Pitocin was initiated after delivery of the to assist with delivery of the placenta, which was delivered spontaneously. Schultze intact with 3 vessels. Upon inspection of the pelvis and perineum, there were no periurethral, vaginal sidewall, cervical, or rectal lacerations. EBL was less than 200 mL. At the time of the epidural, hypotension did occur. She received ephedrine and the magnesium had been stopped. Her blood pressure had remained normal throughout most of labor, and therefore at this point, magnesium will not be restarted. The patient is instructed to report any visual changes or headache and the magnesium will be restarted. Final sponge, needle, and instrument counts were correct. There were no known complications. Mother and baby are in LDR in good condition. GARLAND MONTEMAYOR /[id number]
[2019-01-28] MEDS ORDERED: Prenatal Multivitamin and Multimineral with Iron Tab PO SCH (09:00)
[2019-01-28] MEDS ORDERED: Sertraline 50 MG Tab PO SCH (09:00)
--- NOTE | 2019-01-28 11:10 | PCM.SN ---
- Free Text/Narrative Note: Patient requests discharge today as baby is being transferred to [place] for higher level nursery. She has mild headache and BP's have been completely normal since delivery. I have asked her to stay until at least 12 hours , with serial BP, if normal, then may be discharged. Discharge precautions reviewed.
--- NOTE | 2019-01-28 11:53 | PCM48HPAN ---
Post Anesthesia Note - EVALUATION WITHIN 48HRS OF ANESTHETIC Vital Signs in Normal Range: Yes Patient Participated in Evaluation: Yes Respiratory Function Stable: Yes Airway Patent: Yes Cardiovascular Function Stable: Yes Hydration Status Stable: Yes Pain Control Satisfactory: Yes Nausea and Vomiting Control Satisfactory: Yes Mental Status Recovered: Yes Vital Signs: Last Vital Signs Temp 36.7 C 01/28/19 07:13 Pulse 83 01/28/19 07:13 Resp 16 01/28/19 07:13 BP 124/74 01/28/19 10:29 Pulse Ox 99 01/28/19 07:13 - COMMENTS/OBSERVATIONS Free Text/Narrative:: Patient has no complaints and is doing well.
[2019-01-28 16:42] VITALS: BP 119/66; PULSE 77
== END 2019-01-28 16:58 | disposition home or self-care (01) | DRG 807 ==
LOC: MW.OBCHECK 11:32 → MW.OB 11:32 → MW.OBCHECK 12:04 → MW.OB 12:05 → OBSVTOIN 01-28 04:20 → MW.OB 01-28 09:30
PROVIDERS: ADMIT Obstetrics & Gynecology; ATTEND Obstetrics & Gynecology
PROC: 10E0XZZ Delivery of Products of Conception, External Approach (ICD-10-PCS; principal; 2019-01-28)
PROC: 10907ZC Drainage of Amniotic Fluid, Therapeutic from Products of Conception, Via Natural or Artificial Opening (ICD-10-PCS; 2019-01-28)
PROC: 3E033VJ Introduction of Other Hormone into Peripheral Vein, Percutaneous Approach (ICD-10-PCS; 2019-01-28)
PROC: 3E0R3BZ Introduction of Anesthetic Agent into Spinal Canal, Percutaneous Approach (ICD-10-PCS; 2019-01-28)
PROC: 00HU33Z Insertion of Infusion Device into Spinal Canal, Percutaneous Approach (ICD-10-PCS; 2019-01-28)
DX: O14.94 Unspecified pre-eclampsia, complicating childbirth (principal); Z37.0 Single live birth; O62.3 Precipitate labor; O69.81X0 Labor and delivery complicated by cord around neck, without compression, not applicable or unspecified; Z3A.37 37 weeks gestation of pregnancy
CPT/HCPCS: 01967; 36415; 51702; 59025; 59409; 80053; 82570; 82803; 83615; 83735; 84156; 84550; 85014; 85018; 85027; 86850; 86900; 86901; A9270-GY; J2370; J2405; J2590; J3475; J7040; J7120

== ENCOUNTER 2020-03-23 12:14 | Emergency (ER) | payer OTHER ==
[2020-03-23] MEDS ORDERED: HYDROmorphone 1 MG/ML Syringe IVPUSH ONE (12:48)
[2020-03-23] MEDS ORDERED: Lactated Ringers 1,000 ML IV ONE (12:48)
[2020-03-23] MEDS ORDERED: Ondansetron 4 MG/2 ML SDV IVPUSH ONE (12:50)
[2020-03-23] MEDS ORDERED: Ondansetron 4 MG/2 ML SDV ONE (12:51)
[2020-03-23] MEDS ORDERED: HYDROmorphone 1 MG/ML Syringe ONE (12:51)
[2020-03-23 13:19] LABS: BLOOD UREA NITROGEN,BUN 8 mg/dL (7.0-18.0); CARBON DIOXIDE,CO2 24.5 mmol/L (21.0-32.0); CHLORIDE,CL 105 mmol/L (98-107); GLUCOSE RANDOM 144 mg/dL (74-106); LIPASE 119 U/L (73-393); POTASSIUM,K 3.6 mmol/L (3.5-5.1); SODIUM,NA 141 mmol/L (136-145)
[2020-03-23] MEDS ORDERED: Iopamidol 755 MG/ML 500 ML Multipack Bottle IVPUSH ONE (14:05)
[2020-03-23] MEDS ORDERED: diphenhydrAMINE 50 MG/ML SDV IVPUSH ONE (14:13)
[2020-03-23] MEDS ORDERED: Haloperidol Lactate 5 MG/ML SDV IM ONE (14:13)
--- NOTE | 2020-03-23 14:25 | CT ---
Indication: Diffuse abdominal pain Technique: Contrast enhanced CT abdomen and pelvis Comparison: No comparison studies are available. Findings: Heart size normal lung bases are clear. No pleural effusion. Spleen pancreas liver is unremarkable. Gallbladder is unremarkable. Normal caliber abdominal aorta. Small cyst right kidney. Symmetric enhancement of both kidneys. Normal appendix. Bowel is unremarkable. Urinary bladder is unremarkable. Bilateral ovarian cysts measuring 2.3 centimeters on the left and 1.8 centimeters on the right No suspicious bony lesions. Impression: No acute findings in the abdomen or pelvis. Please note that all CT scans at this facility use dose modulation, iterative reconstruction, and/or weight-based dosing when appropriate to reduce radiation dose to as low as reasonably achievable. Dictated by Myriam Powell MD @ Mar 23 2020 2:17PM Signed by Dr. Myriam Powell @ Mar 23 2020 2:23PM
[2020-03-23] MEDS ORDERED: Cephalexin 250 MG Cap PO ONE (14:58)
[2020-03-23] MEDS ORDERED: Phenazopyridine 200 MG Tab PO ONE (15:03)
--- NOTE | 2020-03-23 15:35 | EDM.PDOC ---
ED HPI GENERAL MEDICAL PROBLEM - General Chief Complaint: Abdominal Pain Stated Complaint: VOMITTING,ABDOMINAL PAIN Time Seen by Provider: 03/23/20 12:32 - History of Present Illness INITIAL COMMENTS - FREE TEXT/NARRATIVE: CHIEF COMPLAINT(S): Abdominal pain HISTORY OF PRESENT ILLNESS: This is a 34-year-old woman without any significant past medical history who comes to the emergency department with a chief complaint of abdominal pain. The patient states that for approximately 1 week now she has been experiencing decreased appetite and nausea. She states that she then started developing lower abdominal pain which she describes as intermittent, sharp, crampy, and achy rated 5-6 out of 10 associated with nonbloody nonbilious vomiting. She denies any hematemesis or bilious emesis. She states that she has never had pain like this before. She states that she also has left sided back pain. She denies any fevers or chills. She denies any radiation of this pain. She states that she has not tried any pain medications and nothing seems to help it or relieve it. She denies any vaginal bleeding, vaginal discharge, dysuria, history of kidney stones or history of ovarian cyst. She states that she cannot be as she has had a tubal ligation. She is sexually active with one partner. She states that she has had diarrhea but denies any melena or hematochezia. She denies any constipation. She denies any chest pain, shortness of breath, fever, or chills REVIEW OF SYSTEMS: Constitutional: Denies fever, chills. Eyes: Denies eye pain Ears, Nose, Mouth, & Throat: Denies earache Cardiovascular: Denies chest pain Respiratory: Denies shortness of breath Gastrointestinal: Positive for abdominal pain, nausea, vomiting, and diarrhea. Denies melena, hematochezia, hematemesis, bilious emesis Genitourinary: Denies hematuria vaginal bleeding, vaginal discharge, dysuria Skin:Denies a rash Neurological: Denies blurred vision Psychiatric: Denies depression PAST MEDICAL HISTORY: As per history of present illness and as reviewed below otherwise noncontributory. SURGICAL HISTORY: As per history of present illness and as reviewed below otherwise noncontributory. SOCIAL HISTORY: As per history of present illness and as reviewed below otherwise noncontributory. FAMILY HISTORY: As per history of present illness and as reviewed below otherwise noncontributory. EXAMINATION OF ORGAN SYSTEMS/BODY AREAS: Constitutional: Blood pressure is 189/126, heart rate 78, respiratory 21 with an oxygen saturation 97% on room air. Temperature 35.3 General: Young woman who appears visibly uncomfortable. Psychiatric: Appropriate mood and affect. Eyes: No scleral icterus or conjunctival erythema ENMT: Moist mucous membranes. No pharyngeal erythema Cardiovascular: Regular, rate, and rhythm. No gallops, murmurs, or rubs. Bilateral upper extremity pulses symmetric and intact. No peripheral edema. No JVD. Respiratory: Lungs clear to auscultation bilaterally. No wheezes, rales, or rhonchi. Gastrointestinal: Diffusely tender to palpation however worse in the suprapubic and left lower quadrant. No rebound or guarding. Normal bowel sounds Genitourinary: Suprapubic tenderness is present. No CVA tenderness. Musculoskeletal: Normal range of motion. Left lumbar paraspinal muscle tenderness. Skin: No lesions or abrasions. Neurological: Alert, GCS 15 MEDICAL DECISION MAKING AND COURSE IN THE ED WITH INTERPRETATION/REVIEW OF DIAGNOSTIC STUDIES: This is a 34-year-old woman without any significant past medical history who comes to the emergency department with intermittent abdominal pain located in the suprapubic and left lower quadrant region who is writhing in pain in the room. At this time there is is not a surgical abdomen however we will obtain a CT abdomen pelvis with IV contrast to evaluate. We will provide the patient with Dilaudid IV for pain relief. We will also give her Zofran for antinausea relief. Will obtain CBC, CMP, coronavirus, urinalysis, and test. We will provide the patient with 1 L of lactated Ringer's bolus. Laboratory: CBC is unremarkable. Coags are within normal limits. CMP reveals hyperglycemia and hypoalbuminemia otherwise unremarkable. Glucose level was 144, albumin was 3.2. Lipase is normal at 119. hCG is negative. Covid is negative Urinalysis was a clean catch and was trace for leukocyte esterase, negative for nitrites, and trace for blood. 2+ urinary bacteria with 3-5 WBCs. Interpretation: Positive The radiological images were viewed by myself along with reading the report from the radiologist. CT abdomen pelvis with IV contrast reveals no acute intra-abdominal process. There is bilateral ovarian cyst measuring 2.3 cm on left and 1.8 cm on the right. After CT I did reevaluate the patient. The patient had continued pain at this time. I provided the patient with Haldol and Benadryl for pain relief and Keflex and Pyridium for possible urinary tract infection. Given the continued pain I did discuss doing a pelvic examination to evaluate for PID versus adnexal tenderness at this time. She was amenable to this plan. I performed pelvic examination with RN mock up assembler in presence. There was no external lesions and had normal female external genitalia. On speculum examination there was mild clear fluid and cervix appeared unremarkable. On bimanual examination there was cervical motion tenderness, and left adnexal tenderness. There was no right adnexal tenderness. Given the examination we will obtain a transvaginal OB ultrasound to evaluate for ovarian torsion versus PID. We will send off gonorrhea and chlamydia from the urine. The radiological images were viewed by myself along with reading the report from the radiologist. Transvaginal ultrasound reveals a normal pelvic ultrasound with good Doppler flow of bilateral ovaries with bilateral ovarian cysts. On reevaluation, the patient reported complete resolution of her pain. I did discuss with her at this time that given the cervical motion tenderness I am concerned about the possibility of myalgic inflammatory disease. I discussed with her that I will be providing her with ceftriaxone IM, doxycycline, and metronidazole. I discussed with her that I be providing her with antibiotics to take at home for the next 2 weeks. I discussed the importance of following up with her primary care physician. She was amenable to this plan. I did discuss strict return precautions with her. She was amenable to discharge at this time and had no further questions. DISPOSITION: The patient was discharged home in stable condition. The patient will follow up with PCP/safe and vault service mechanic within 1 week CONDITION: Fair PROCEDURES: None FINAL IMPRESSION(S)/DIAGNOSES: 1. Acute abdominal pain, suspect pelvic inflammatory disease versus cystitis Ron Jacques M.D. abdomen Pain Score (Numeric/FACES): 5 - Related Data Allergies Allergy/AdvReac Type Severity Reaction Status Date / Time No Known Allergies Allergy Verified 03/23/20 14:08 Home Meds: Home Meds Sertraline [Zoloft] 50 mg PO DAILY 01/27/19 [History] Doxycycline [Vibramycin] 100 mg PO BID 14 Days #28 tab 03/23/20 [Rx] Ondansetron [Zofran ODT] 4 mg PO Q6H PRN #6 tab.dis 03/23/20 [Rx] cephALEXin [Cephalexin] 250 mg PO BID 3 Days #5 capsule 03/23/20 [Rx] metroNIDAZOLE [Flagyl] 500 mg PO BID 14 Days #28 tablet 03/23/20 [Rx] Past Medical History HEENT History: Reports: None Cardiovascular History: Reports: Hypertension Other Cardiovascular History: Hypertension with -preeclampsia Respiratory History: Reports: None Gastrointestinal History: Reports: GERD, Hiatal Hernia, Other (See Below) Genitourinary History: Reports: None CONTRACT FORESTER History: Reports: , Other (See Below) (Preeclampsia) Musculoskeletal History: Reports: None Neurological History: Reports: Other (See Below) (Headaches) Psychiatric History: Reports: None Endocrine/Metabolic History: Reports: Obesity/BMI 30+ Hematologic History: Reports: None Immunologic History: Reports: None Oncologic (Cancer) History: Reports: None Dermatologic History: Reports: None - Infectious Disease History Infectious Disease History: Reports: None - Past Surgical History HEENT Surgical History: Reports: Adenoidectomy, Naso-Sinus Surgery, Tonsillectomy Musculoskeletal Surgical History: Reports: Shoulder Surgery (Right Shoulder) Social & Family History - Family History Family Medical History: No Pertinent Family History - Caffeine Use Caffeine Use: Reports: Coffee, Soda Caffeine Use Comment: Rarely ED ROS GENERAL - Review of Systems Review Of Systems: See Below ED EXAM, GI/ABD - Physical Exam Exam: See Below Course - Vital Signs Last Recorded V/S: Last Vital Signs Temp 35.7 C L 03/23/20 20:20 Pulse 78 03/23/20 20:20 Resp 16 03/23/20 20:20 BP 111/64 03/23/20 20:20 Pulse Ox 99 03/23/20 20:20 - Orders/Labs/Meds Orders: Active Orders 24 hr Category Date Time Status CHLAMYDIA AND GONORRHEA BY TMA Stat Lab 03/23/20 15:22 Ordered CORONAVIRUS COVID-19 PCR PHL Stat Lab 03/23/20 13:30 Received Labs: Laboratory Tests 03/23/20 03/23/20 03/23/20 Range/Units 12:46 12:46 12:46 WBC 10.94 (4.0-11.0) K/uL RBC 4.33 (4.30-5.90) M/uL Hgb 12.7 (12.0-16.0) g/dL Hct 39.8 (36.0-46.0) % MCV 91.9 (80.0-98.0) fL MCH 29.3 (27.0-32.0) pg MCHC 31.9 (31.0-37.0) g/dL RDW Std Deviation 48.0 (28.0-62.0) fl RDW Coeff of Nasima 14 (11.0-15.0) % Plt Count 190 (150-400) K/uL MPV 12.60 H (7.40-12.00) fL Neut % (Auto) 79.1 (48.0-80.0) % Lymph % (Auto) 12.8 L (16.0-40.0) % Dunn % (Auto) 6.0 (0.0-15.0) % Eos % (Auto) 2.0 (0.0-7.0) % Baso % (Auto) 0.1 (0.0-1.5) % Neut # (Auto) 8.7 H (1.4-5.7) K/uL Lymph # (Auto) 1.4 (0.6-2.4) K/uL Dunn # (Auto) 0.7 (0.0-0.8) K/uL Eos # (Auto) 0.2 (0.0-0.7) K/uL Baso # (Auto) 0.0 (0.0-0.1) K/uL Nucleated RBC % 0.2 /100WBC Nucleated RBCs # 0 K/uL INR 1.02 APTT 24.4 (18.6-31.3) SEC Lactate 1.0 (0.20-2.00) mmol/L Sodium (136-145) mmol/L Potassium (3.5-5.1) mmol/L Chloride (98-107) mmol/L Carbon Dioxide (21.0-32.0) mmol/L BUN (7.0-18.0) mg/dL Creatinine (0.6-1.0) mg/dL Est Cr Clr Drug Dosing Estimated GFR (MDRD) ml/min Glucose (74-106) mg/dL Calcium (8.5-10.1) mg/dL Magnesium (1.8-2.4) mg/dL Total Bilirubin (0.2-1.0) mg/dL AST (15-37) IU/L ALT (14-63) IU/L Alkaline Phosphatase (46-116) U/L Total Protein (6.4-8.2) g/dL Albumin (3.4-5.0) g/dL Globulin (2.6-4.0) g/dL Albumin/Globulin Ratio (0.9-1.6) Lipase (73-393) U/L HCG, Qual (NEG) Urine Color Urine Appearance Urine pH (5.0-8.0) Ur Specific [place] (1.001-1.035) Urine Protein (NEGATIVE) mg/dL Urine Glucose (UA) (NEGATIVE) mg/dL Urine Ketones (NEGATIVE) mg/dL Urine Occult Blood (NEGATIVE) Urine Nitrite (NEGATIVE) Urine Bilirubin (NEGATIVE) Urine Urobilinogen (<2.0) EU/dL Ur Leukocyte Esterase (NEGATIVE) Urine RBC (0-2/HPF) Urine WBC (0-5/HPF) Ur Epithelial Cells (NONE-FEW) Urine Bacteria (NEGATIVE) Urine Mucus (NONE-MOD) SARS CoV-2 RNA Rapid ISA (NEGATIVE) Blood Type Antibody Screen 03/23/20 03/23/20 03/23/20 Range/Units 12:46 12:46 13:09 WBC (4.0-11.0) K/uL RBC (4.30-5.90) M/uL Hgb (12.0-16.0) g/dL Hct (36.0-46.0) % MCV (80.0-98.0) fL MCH (27.0-32.0) pg MCHC (31.0-37.0) g/dL RDW Std Deviation (28.0-62.0) fl RDW Coeff of Nasima (11.0-15.0) % Plt Count (150-400) K/uL MPV (7.40-12.00) fL Neut % (Auto) (48.0-80.0) % Lymph % (Auto) (16.0-40.0) % Dunn % (Auto) (0.0-15.0) % Eos % (Auto) (0.0-7.0) % Baso % (Auto) (0.0-1.5) % Neut # (Auto) (1.4-5.7) K/uL Lymph # (Auto) (0.6-2.4) K/uL Dunn # (Auto) (0.0-0.8) K/uL Eos # (Auto) (0.0-0.7) K/uL Baso # (Auto) (0.0-0.1) K/uL Nucleated RBC % /100WBC Nucleated RBCs # K/uL INR APTT (18.6-31.3) SEC Lactate (0.20-2.00) mmol/L Sodium 141 (136-145) mmol/L Potassium 3.6 (3.5-5.1) mmol/L Chloride 105 (98-107) mmol/L Carbon Dioxide 24.5 (21.0-32.0) mmol/L BUN 8 (7.0-18.0) mg/dL Creatinine 0.9 (0.6-1.0) mg/dL Est Cr Clr Drug Dosing TNP Estimated GFR (MDRD) > 60.0 ml/min Glucose 144 H (74-106) mg/dL Calcium 9.1 (8.5-10.1) mg/dL Magnesium 1.9 (1.8-2.4) mg/dL Total Bilirubin 0.2 (0.2-1.0) mg/dL AST 16 (15-37) IU/L ALT 17 (14-63) IU/L Alkaline Phosphatase 66 (46-116) U/L Total Protein 7.6 (6.4-8.2) g/dL Albumin 3.2 L (3.4-5.0) g/dL Globulin 4.4 H (2.6-4.0) g/dL Albumin/Globulin Ratio 0.7 L (0.9-1.6) Lipase 119 (73-393) U/L HCG, Qual NEGATIVE (NEG) Urine Color Urine Appearance Urine pH (5.0-8.0) Ur Specific [place] (1.001-1.035) Urine Protein (NEGATIVE) mg/dL Urine Glucose (UA) (NEGATIVE) mg/dL Urine Ketones (NEGATIVE) mg/dL Urine Occult Blood (NEGATIVE) Urine Nitrite (NEGATIVE) Urine Bilirubin (NEGATIVE) Urine Urobilinogen (<2.0) EU/dL Ur Leukocyte Esterase (NEGATIVE) Urine RBC (0-2/HPF) Urine WBC (0-5/HPF) Ur Epithelial Cells (NONE-FEW) Urine Bacteria (NEGATIVE) Urine Mucus (NONE-MOD) SARS CoV-2 RNA Rapid ISA (NEGATIVE) Blood Type A POSITIVE Antibody Screen NEGATIVE 03/23/20 03/23/20 Range/Units 13:30 13:30 WBC (4.0-11.0) K/uL RBC (4.30-5.90) M/uL Hgb (12.0-16.0) g/dL Hct (36.0-46.0) % MCV (80.0-98.0) fL MCH (27.0-32.0) pg MCHC (31.0-37.0) g/dL RDW Std Deviation (28.0-62.0) fl RDW Coeff of Nasima (11.0-15.0) % Plt Count (150-400) K/uL MPV (7.40-12.00) fL Neut % (Auto) (48.0-80.0) % Lymph % (Auto) (16.0-40.0) % Dunn % (Auto) (0.0-15.0) % Eos % (Auto) (0.0-7.0) % Baso % (Auto) (0.0-1.5) % Neut # (Auto) (1.4-5.7) K/uL Lymph # (Auto) (0.6-2.4) K/uL Dunn # (Auto) (0.0-0.8) K/uL Eos # (Auto) (0.0-0.7) K/uL Baso # (Auto) (0.0-0.1) K/uL Nucleated RBC % /100WBC Nucleated RBCs # K/uL INR APTT (18.6-31.3) SEC Lactate (0.20-2.00) mmol/L Sodium (136-145) mmol/L Potassium (3.5-5.1) mmol/L Chloride (98-107) mmol/L Carbon Dioxide (21.0-32.0) mmol/L BUN (7.0-18.0) mg/dL Creatinine (0.6-1.0) mg/dL Est Cr Clr Drug Dosing Estimated GFR (MDRD) ml/min Glucose (74-106) mg/dL Calcium (8.5-10.1) mg/dL Magnesium (1.8-2.4) mg/dL Total Bilirubin (0.2-1.0) mg/dL AST (15-37) IU/L ALT (14-63) IU/L Alkaline Phosphatase (46-116) U/L Total Protein (6.4-8.2) g/dL Albumin (3.4-5.0) g/dL Globulin (2.6-4.0) g/dL Albumin/Globulin Ratio (0.9-1.6) Lipase (73-393) U/L HCG, Qual (NEG) Urine Color YELLOW Urine Appearance SLT CLOUDY Urine pH 6.0 (5.0-8.0) Ur Specific [place] >= 1.030 (1.001-1.035) Urine Protein NEGATIVE (NEGATIVE) mg/dL Urine Glucose (UA) NEGATIVE (NEGATIVE) mg/dL Urine Ketones NEGATIVE (NEGATIVE) mg/dL Urine Occult Blood TRACE-INTACT H (NEGATIVE) Urine Nitrite NEGATIVE (NEGATIVE) Urine Bilirubin NEGATIVE (NEGATIVE) Urine Urobilinogen 0.2 (<2.0) EU/dL Ur Leukocyte Esterase TRACE H (NEGATIVE) Urine RBC 1-3 (0-2/HPF) Urine WBC 3-5 (0-5/HPF) Ur Epithelial Cells MODERATE (NONE-FEW) Urine Bacteria 2+ H (NEGATIVE) Urine Mucus LIGHT (NONE-MOD) SARS CoV-2 RNA Rapid ISA NEGATIVE (NEGATIVE) Blood Type Antibody Screen Meds: Medications Discontinued Medications Generic Name Dose Route Start Last Admin Trade Name Freq PRN Reason Stop Dose Admin Cephalexin 250 mg 03/23/20 14:58 03/23/20 15:29 Keflex PO 03/23/20 14:59 250 mg ONETIME ONE Administration Diphenhydramine HCl 50 mg 03/23/20 14:13 03/23/20 14:35 Benadryl IVPUSH 03/23/20 14:14 50 mg ONETIME ONE Administration Doxycycline Hyclate 100 mg 03/23/20 17:19 03/23/20 17:44 Vibramycin PO 03/23/20 17:20 100 mg ONETIME ONE Administration Haloperidol Lactate 5 mg 03/23/20 14:13 03/23/20 14:35 Haldol IM 03/23/20 14:14 5 mg ONETIME ONE Administration Hydromorphone HCl 1 mg 03/23/20 12:48 03/23/20 12:55 Dilaudid IVPUSH 03/23/20 12:49 1 mg ONETIME ONE Administration Hydromorphone HCl Confirm 03/23/20 12:51 03/23/20 12:58 Dilaudid Administered 03/23/20 12:52 Not Given Dose 1 mg .ROUTE .STK-MED ONE Lactated Ringer's 1,000 mls @ 999 mls/hr 03/23/20 12:48 03/23/20 13:00 Ringers, Lactated IV 03/23/20 13:48 999 mls/hr .BOLUS ONE Administration Ceftriaxone Sodium 250 mg/ 1 mls @ 1 mls/sec 03/23/20 17:18 03/23/20 17:45 Lidocaine HCl IM 03/23/20 17:19 1 mls/sec ONETIME ONE Administration Iopamidol 100 ml 03/23/20 14:05 03/23/20 14:06 Isovue Multipack-370 (76%) IVPUSH 03/23/20 14:06 100 ml ONETIME ONE Administration Metronidazole 500 mg 03/23/20 17:19 03/23/20 17:44 Metronidazole PO 03/23/20 17:20 500 mg ONETIME ONE Administration Ondansetron HCl 4 mg 03/23/20 12:50 03/23/20 12:53 Zofran IVPUSH 03/23/20 12:51 4 mg ONETIME ONE Administration Ondansetron HCl Confirm 03/23/20 12:51 03/23/20 12:58 Zofran Administered 03/23/20 12:52 Not Given Dose 4 mg .ROUTE .STK-MED ONE Phenazopyridine HCl 200 mg 03/23/20 15:03 03/23/20 15:29 Pyridium PO 03/23/20 15:04 200 mg ONETIME ONE Administration Departure - Departure Time of Disposition: 17:23 Disposition: Home, Self-Care 01 Condition: Fair Clinical Impression: PID (acute pelvic inflammatory disease), UTI (urinary tract infection) - Discharge Information *PRESCRIPTION DRUG MONITORING PROGRAM REVIEWED*: No *COPY OF PRESCRIPTION DRUG MONITORING REPORT IN PATIENT LANIE: No Prescriptions: cephALEXin [Cephalexin] 250 mg PO BID 3 Days #5 capsule metroNIDAZOLE [Flagyl] 500 mg PO BID 14 Days #28 tablet Doxycycline [Vibramycin] 100 mg PO BID 14 Days #28 tab Ondansetron [Zofran ODT] 4 mg PO Q6H PRN #6 tab.dis PRN Reason: Nausea/Vomiting Instructions: Antibiotic Medicine, Adult, [id number], Urinary Tract Infection, Adult, [id number], Pelvic Inflammatory Disease, [id number] Referrals: Juan Carlos Boyle Jr, TANIKA [Primary Care Provider] - Forms: ED Department Discharge Additional Instructions: The patient is informed of any results of their evaluation and diagnostic workup and all questions are answered. They are given discharge instructions and return precautions. The patient is stable for discharge. The patient states they understand and agree with the plan and that they will return if their symptoms get worse or if they have any new concerns. The following information is given to patients seen in the emergency department who are being discharged to home. This information is to outline your options for follow-up care. We provide all patients seen in our emergency department with a follow-up referral. The need for follow-up, as well as the timing and circumstances, are variable depending upon the specifics of your emergency department visit. If you don't have a primary care physician on staff, we will provide you with a referral. We always advise you to contact your personal physician following an emergency department visit to inform them of the circumstance of the visit and for follow-up with them and/or the need for any referrals to a consulting specialist. The emergency department will also refer you to a specialist when appropriate. This referral assures that you have the opportunity for follow-up care with a specialist. All of these measure are taken in an effort to provide you with optimal care, which includes your follow-up. Under all circumstances we always encourage you to contact your private physician who remains a resource for coordinating your care. When calling for follow-up care, please make the office aware that this follow-up is from your recent emergency room visit. If for any reason you are refused follow-up, please contact the [facility] Emergency Department at and asked to speak to the emergency department charge nurse. Today your evaluated on an emergent basis. At this time I do believe you are experiencing pelvic inflammatory disease and a urinary tract infection. Please complete all the antibiotics as prescribed. Use Zofran as needed for nausea and vomiting. Please return to the emergency department for any new or worsening symptoms such as fever, inability to tolerate p.o., or worsening abdominal pain and vaginal discharge. Please follow-up with your safe and vault service mechanic or primary care physician within 1 week. [facility] [address] [place] [id number] [facility] [address] [place] [id number] [facility] [address] [place] [id number] [address] Sepsis Event Note (ED) - Evaluation Sepsis Screening Result: No Definite Risk - Focused Exam Vital Signs: Vital Signs Temp Pulse Resp BP Pulse Ox 03/23/20 20:20 35.7 C L 78 16 111/64 99 03/23/20 15:02 58 L 22 H 114/59 L 96 03/23/20 14:15 64 23 H 113/64 97 03/23/20 12:40 35.3 C L 78 21 H 189/126 H 97 - My Orders Last 24 Hours: My Active Orders 03/23/20 13:30 CORONAVIRUS COVID-19 PCR PHL Stat 03/23/20 15:22 CHLAMYDIA AND GONORRHEA BY TMA Stat - Assessment/Plan Last 24 Hours: My Active Orders 03/23/20 13:30 CORONAVIRUS COVID-19 PCR PHL Stat 03/23/20 15:22 CHLAMYDIA AND GONORRHEA BY TMA Stat
--- NOTE | 2020-03-23 17:07 | US ---
INDICATION: Pelvic pain, evaluate for ovarian torsion. COMPARISON: None. TECHNIQUE: 2D awad scale and color Doppler images were acquired of the pelvis using a transabdominal and transvaginal approach. FINDINGS: Sonographic images demonstrate a normal size and smooth outer contour of the uterus. The uterus is anteverted in position. The uterus measures 9.0 cm in length by 5.2 cm in AP diameter by 4.5 cm in transverse dimension. The myometrium has a normal uniform echotexture. The endometrial lining appears normal and measures 14 mm in composite thickness. The right ovary measures 3.4 x 2.2 x 3.4 cm in size and the left ovary measures 2.8 x 1.7 x 2.2 cm. The ovaries demonstrate normal arterial and venous blood flow on color Doppler analysis. There is a 1.9 cm dominant follicle in right ovary. Additional small physiologic follicles in both ovaries. No free fluid in the cul-de-sac. IMPRESSION: Normal pelvic ultrasound. Dictated by Barbara Pulido MD @ Mar 23 2020 4:56PM Signed by Dr. Barbara Pulido @ Mar 23 2020 5:05PM
[2020-03-23] MEDS ORDERED: cefTRIAXone 250 MG in Lidocaine 1% 1 ML IM ONE (17:18)
[2020-03-23] MEDS ORDERED: metroNIDAZOLE 250 MG Tab PO ONE (17:19)
[2020-03-23] MEDS ORDERED: Doxycycline 100 MG Cap PO ONE (17:19)
[2020-03-23 20:21] VITALS: BP 111/64; PULSE 78
--- NOTE | 2020-03-25 11:28 | PCM.SN.2 ---
- Free Text/Narrative Note: Contacted patient for follow up. Patient stated that she has been able to tolerate chicken broth and has not had any more vomiting. She stated that she still feels a little weak and took some Gas X which did help. She denied any fevers and stated that her pain has significantly improved. I encouraged her to continue with PO hydration and to use OTC probiotics as the antibiotics may be contributing to her feeling uneasy. Also discussed that her lab results are still pending and she will receive a call if they are positive. Given strict return precautions.
[2020-03-26 11:03] LABS: C.TRACHOMATIS BY TMA Negative (Negative); N.GONORRHOEAE BY TMA Negative (Negative)
== END 2020-03-23 17:52 | disposition home or self-care (01) ==
LOC: MW.ED 12:14
DX: R10.32 Left lower quadrant pain (principal); I10 Essential (primary) hypertension; E66.9 Obesity, unspecified; Z68.41 Body mass index [BMI] 40.0-44.9, adult; Z79.899 Other long term (current) drug therapy
CPT/HCPCS: 36415; 74177; 76830; 80053; 81001; 83605; 83690; 83735; 84703; 85025; 85610; 85730; 86850; 86900; 86901; 87491; 87591; 87635; 96372; 96374; 96375; 99284; A9270; J0696; J1170; J1200; J1630; J2001; J2405; J7120; Q9967; 99283; U0002